=== PATIENT | female | born 1995 | race Caucasian/White ===

== ENCOUNTER 2017-01-27 07:02 | Emergency (ER) | payer BC ==
[~2017-01-27] VITALS: Ht 172.7 cm; Wt 60.0 kg
[2017-01-27 07:06] VITALS: BP 140/87; PULSE 97; RESP 16; TEMP 97.5; O2SAT 99
[2017-01-27] MEDS ORDERED: MONOTAB PO (07:30)
--- NOTE | 2017-01-27 07:46 | PD ---
HPI Chief Complaint: Medical Clearance Time Seen by Provider: 07:29 Travel History International Travel<30 days: No Contact w/Intl Traveler<30days: No Traveled to known affect area: No History of Present Illness HPI Patient is a 21-year-old female who comes in after she experienced an episode of blurry vision in her right eye today. She says she was getting dressed for work when suddenly she had blurry vision for about 15 minutes. She says it spontaneously resolved. She says she has no symptoms at this time. She says this has never happened before. She denies any headache. She denies any recent head trauma. She denies any other neurologic symptoms. She says she measured her blood pressure the time of the event and thought was elevated. She reports being very nervous during this time. [facility] Past Medical History Medical History: Denies Significant Hx Diminished Hearing: No Tetanus Vaccination: > 5 Years Influenza Vaccination: Yes ?: Not LMP: 01/21/17 Past Surgical History Surgical History: No Previous Surgery Social History Alcohol Use: No Tobacco Use: No Substance Use: No Allergies-Medications (Allergen,Severity, Reaction): Coded Allergies: No Known Allergies (Unverified , 01/27/17) Reported Meds & Prescriptions Reported Meds & Active Scripts Active Reported Mononessa (Norgestimate-Ethinyl Estradiol) 0.25-35 Mg-Mcg Tab 1 Tab PO DAILY Review of Systems Except as stated in HPI: all other systems reviewed are Neg General / Constitutional: No: Fever, Chills Eyes: Positive: Blurred Vision HENT: No: Headaches, Lightheadedness Cardiovascular: No: Chest Pain or Discomfort Respiratory: No: Shortness of Breath Gastrointestinal: No: Nausea, Vomiting Skin: No Rash Neurologic: No: Weakness, Paresthesia, Sensory Disturbance Physical Exam Narrative GENERAL: Awake and alert, in no acute distress. SKIN: Warm and dry. HEAD: Atraumatic. Normocephalic. EYES: Pupils equal and round and reactive. No scleral icterus. Extraocular movements intact. ENT: Mucous membranes pink and moist. NECK: Trachea midline. No JVD. CARDIOVASCULAR: Regular rate and rhythm. No murmur appreciated. RESPIRATORY: No accessory muscle use. Clear to auscultation. Breath sounds equal bilaterally. MUSCULOSKELETAL: No obvious deformities. No clubbing. No cyanosis. No edema. NEUROLOGICAL: Awake and alert. No obvious cranial nerve deficits. Motor grossly within normal limits. Normal speech. PSYCHIATRIC: Appropriate mood and affect; insight and judgment normal. Data Data Last Documented VS Vital Signs Date Time Temp Pulse Resp B/P Pulse Ox O2 Delivery O2 Flow Rate FiO2 01/27/17 07:06 97.5 97 16 140/87 99 Room Air Orders Ed Urine Pregnancytest Poc (01/27/17 07:40) MDM Medical Decision Making Medical Screen Exam Complete: Yes Emergency Medical Condition: Yes Differential Diagnosis Anxiety versus hypertension versus tension headache versus atypical migraine Narrative Course Patient is a 21-year-old female who comes in after an episode of blurred vision today. Exam currently shows no acute abnormalities, no neurologic abnormalities. Patient offered further testing including CT scan of her head. She is declining at this time. Patient works in the hospital. Advised if her symptoms return any time she should return to the emergency department for further testing. Advised that sometimes blurred vision or eye pain can be a symptom of MS. Advised that she should follow-up with her doctor to discuss this. She has no history of MS and the family and no other symptoms at this time. Patient is requesting to be discharged. Advised to return any time for any concerns or symptoms. Diagnosis Primary Impression: Blurred vision Patient Instructions: Blurred Vision (ED), General Instructions Additional Instructions: Follow up with your doctor. Return to the ED as needed for any worsening or concerning symptoms. Disposition: 01 DISCHARGE HOME Condition: Stable Faiza Coates MD Jan 27, 2017 07:46
== END 2017-01-27 07:55 | disposition home or self-care (01) ==
LOC: NEPE 07:02
DX: H53.8 Other visual disturbances (principal)
CPT/HCPCS: 84703; 99283